=== PATIENT | male | born 1985 | race Caucasian/White ===

== ENCOUNTER → 2018-08-14 | Outpatient (REF) | payer OTHER, SELFPAY ==
[2018-08-14 12:43] LABS: BASO % 0.6 % (0.0-1.0); EOS # 0.4 10^3/uL (0.0-0.50); EOS % 5.5 % (0.0-3.0); HEMATOCRIT 47.9 % (42.0-52.0); HEMOGLOBIN 16.2 g/dl (13.5-17.5); LYMPH # 2.2 10^3/uL (1.5-4.5); LYMPH % 33.8 % (24.0-44.0); MEAN CORPUSCULAR HEMOGLOBIN 29.4 pg (27.0-33.0); MEAN CORPUSCULAR HGB CONC 33.8 g/dl (32.0-36.5); MEAN CORPUSCULAR VOLUME 86.9 fl (80.0-96.0); MONO # 0.5 10^3/uL (0.0-0.8); MONO % 7.7 % (0.0-5.0); NEUTROPHILS # 3.3 10^3/uL (1.8-7.7); NEUTROPHILS % 52.2 % (36.0-66.0); PLATELET COUNT, AUTOMATED 318 10^3/uL (150-450); RED BLOOD COUNT 5.51 10^6/uL (4.30-6.10); WHITE BLOOD COUNT 6.4 10^3/uL (4.0-10.0)
[2018-08-14 12:51] LABS: BLOOD UREA NITROGEN 15 MG/DL (7-18); CALCIUM LEVEL 9.3 MG/DL (8.5-10.1); CARBON DIOXIDE LEVEL 28 MEQ/L (21-32); CHLORIDE LEVEL 106 MEQ/L (98-107); CREATININE FOR GFR 0.79 MG/DL (0.70-1.30); GLOMERULAR FILTRATION RATE > 60.0 (>60); GLUCOSE, FASTING 103 MG/DL (70-100); POTASSIUM SERUM 4.4 MEQ/L (3.5-5.1); SODIUM LEVEL 140 MEQ/L (136-145)
[2018-08-14 12:52] LABS: ALBUMIN 4.1 GM/DL (3.2-5.2); ALT/SGPT 94 U/L (12-78); CHOLESTEROL LEVEL 142 MG/DL (<200); CHOLESTEROL RISK RATIO 6.173 (<5); FREE T4 1.08 NG/DL (0.76-1.46); HDL CHOLESTEROL 23 MG/DL (>40); LDL CHOLESTEROL 84 MG/DL (<100); NON-HDL-C 119 MG/DL; THYROID STIMULATING HORMONE 0.465 uIU/ML (0.358-3.740); TOTAL PROTEIN 7.4 GM/DL (6.4-8.2); TRIGLYCERIDES LEVEL 175 MG/DL (<150)
[2018-08-14 13:23] LABS: HEMOGLOBIN A1c 5.3 %
[2018-08-18 08:53] LABS: D001-IgE D pteronyssinus 0.23 kU/L (Class 0/I); E001-IgE Cat Epith/Dander < 0.10 kU/L (Class 0); E005-IgE Dog Dander 0.23 kU/L (Class 0/I); G002-IgE Bermuda Grass 1.43 kU/L (Class III); G008-IgE Kentucky Bluegrass 1.41 kU/L (Class III); M001-IgE Penicillium chrysogen < 0.10 kU/L (Class 0); M002 IgE Cladosporium herbaru < 0.10 kU/L (Class 0); M003 IgE Aspergillus fumigatu < 0.10 kU/L (Class 0); M006-IgE Alternaria alternata 0.51 kU/L (Class I); T001-IgE Maple/Box Elder 1.29 kU/L (Class II); T006-IgE Cedar, Mountain 0.97 kU/L (Class II); T007-IgE Oak, White 2.23 kU/L (Class III); T008-IgE Elm, American 1.33 kU/L (Class II); T015-IgE Ash, White 1.42 kU/L (Class III); T041-IgE Hickory, White 1.32 kU/L (Class II); T070-IgE White Mulberry 0.99 kU/L (Class II); W009-IgE Plantain, English 1.45 kU/L (Class III); W014-IgE Pigweed, Rough 1.17 kU/L (Class II); W018-IgE Sheep Sorrel 1.28 kU/L (Class II)
== END ==
LOC: M SFHCPLAZ 09:21
PROVIDERS: ATTEND Physician Assistant Medical
DX: Z13.220 Encounter for screening for lipoid disorders (principal); J30.2 Other seasonal allergic rhinitis; E66.9 Obesity, unspecified

== ENCOUNTER → 2018-08-23 | Outpatient (CLI) | payer OTHER, SELFPAY ==
--- NOTE | 2018-08-23 13:06 | REP ---
Abdominal right recorder ultrasound for elevated liver function tests: There is a negative Luis's sign. There is no cholelithiasis, gallbladder wall thickening or pericholecystic fluid. There is no intrahepatic or extrahepatic biliary duct dilatation. The common duct measures four point millimeters in diameter per The hepatic parenchyma is hyperechoic compatible with no steatosis. There are no hepatic masses. The visualized areas of the pancreas are unremarkable. Portions of the pancreas are obscured by bowel gas. Right kidney measures 31 a 7.5 x 5.7 meters and is normal size. There is no right renal calculus or hydronephrosis. There is no renal solid or cystic mass. There is no right upper quadrant abdominal ascites. Impression: Hepato steatosis. Otherwise, negative abdominal right upper quadrant ultrasound. Electronically Signed by Abrahan Guerrero MD 08/23/2018 12:57 P
== END ==
LOC: M RAD 08:30
PROVIDERS: ATTEND Physician Assistant Medical
DX: R94.5 Abnormal results of liver function studies (principal); K75.81 Nonalcoholic steatohepatitis (NASH)

== ENCOUNTER 2021-08-17 00:26 | Emergency (ER) | payer OTHER ==
[~2021-08-17] VITALS: Ht 185.4 cm; Wt 102.3 kg
[2021-08-17 00:26] VITALS: BP 155/97
== END 2021-08-17 06:50 | disposition home or self-care (01) ==
LOC: M ED 00:26
DX: S09.90XA Unspecified injury of head, initial encounter (principal); S16.1XXA Strain of muscle, fascia and tendon at neck level, initial encounter; W01.0XXA Fall on same level from slipping, tripping and stumbling without subsequent striking against object, initial encounter; W22.09XA Striking against other stationary object, initial encounter; Y92.009 Unspecified place in unspecified non-institutional (private) residence as the place of occurrence of the external cause; Y93.9 Activity, unspecified; Y99.9 Unspecified external cause status

== ENCOUNTER 2024-04-11 10:09 | Emergency (ER) | payer OTHER ==
[~2024-04-11] VITALS: Ht 180.3 cm; Wt 103.5 kg
[2024-04-11 12:20] LABS: BASO % 0.8 % (0.0-1.0); EOS # 0.1 10^3/uL (0.0-0.5); HEMATOCRIT 47.8 % (42.0-52.0); HEMOGLOBIN 16.3 g/dl (13.5-17.5); LYMPH # 1.3 10^3/uL (1.5-5.0); LYMPH % 25.7 % (24.0-44.0); MEAN CORPUSCULAR HEMOGLOBIN 29.5 pg (27.0-33.0); MEAN CORPUSCULAR HGB CONC 34.1 g/dl (32.0-36.5); MEAN CORPUSCULAR VOLUME 86.6 fl (80.0-96.0); MONO # 0.5 10^3/uL (0.0-0.8); MONO % 9.9 % (2.0-8.0); NEUTROPHILS # 3.1 10^3/uL (1.5-8.5); NEUTROPHILS % 61.4 % (36.0-66.0); PLATELET COUNT, AUTOMATED 304 10^3/uL (150-450); RED BLOOD COUNT 5.52 10^6/uL (4.30-6.10); WHITE BLOOD COUNT 5.1 10^3/uL (4.0-10.0)
[2024-04-11 12:33] LABS: ERYTHROCYTE SEDIMENTATION RATE 14 mm/hr (0-15)
[2024-04-11 12:41] LABS: CK-MB VALUE MASS < 1.0 NG/ML (<3.6)
[2024-04-11 12:42] LABS: C REACTIVE PROTEIN QUANTITATIV < 0.40 MG/DL (<1.0)
[2024-04-11 12:43] LABS: BLOOD UREA NITROGEN 14 MG/DL (9-23); CALCIUM LEVEL 9.8 MG/DL (8.5-10.1); CARBON DIOXIDE LEVEL 28 MMOL/L (20-31); CHLORIDE LEVEL 104 MMOL/L (98-107); CREATININE FOR GFR 0.74 MG/DL (0.70-1.30); GLOMERULAR FILTRATION RATE > 60.0 (>60); GLUCOSE, FASTING 91 MG/DL (60-100); MAGNESIUM LEVEL 2.2 MG/DL (1.8-2.4); POTASSIUM SERUM 4.4 MMOL/L (3.5-5.1); SODIUM LEVEL 139 MMOL/L (136-145)
[2024-04-11 12:59] LABS: CPK CREATINE PHOSPHOKINASE 43 U/L (46-171); MB/CK RELATIVE INDEX 2.32 (< OR =4)
[2024-04-11 13:30] VITALS: BP 124/85; TEMP 97.1; O2SAT 95
== END 2024-04-11 13:35 | disposition home or self-care (01) ==
LOC: M ED 10:09
DX: R07.9 Chest pain, unspecified (principal)

== ENCOUNTER 2024-09-27 02:32 | Emergency (ER) | payer OTHER ==
[~2024-09-27] VITALS: Ht 182.9 cm; Wt 107.8 kg
[2024-09-27] MEDS ORDERED: ISOVUE-370 76% 100ML VIAL As Ordered ONE (03:15)
[2024-09-27 03:17] LABS: BASO % 0.5 % (0.0-1.0); EOS # 0.4 10^3/uL (0.0-0.5); EOS % 4.7 % (0.0-3.0); HEMATOCRIT 46.5 % (42.0-52.0); HEMOGLOBIN 16.2 g/dl (13.5-17.5); LYMPH # 2.6 10^3/uL (1.5-5.0); LYMPH % 34.8 % (24.0-44.0); MEAN CORPUSCULAR HEMOGLOBIN 30.3 pg (27.0-33.0); MEAN CORPUSCULAR HGB CONC 34.8 g/dl (32.0-36.5); MEAN CORPUSCULAR VOLUME 86.9 fl (80.0-96.0); MONO # 0.7 10^3/uL (0.0-0.8); MONO % 9.5 % (2.0-8.0); NEUTROPHILS # 3.8 10^3/uL (1.5-8.5); NEUTROPHILS % 50.4 % (36.0-66.0); PLATELET COUNT, AUTOMATED 303 10^3/uL (150-450); RED BLOOD COUNT 5.35 10^6/uL (4.30-6.10); WHITE BLOOD COUNT 7.5 10^3/uL (4.0-10.0)
[2024-09-27 03:28] LABS: INR 0.95; PARTIAL THROMBOPLASTIN TIME 28.2 SECONDS (24.8-34.2)
[2024-09-27 04:01] LABS: BLOOD UREA NITROGEN 14 MG/DL (9-23); CALCIUM LEVEL 9.3 MG/DL (8.5-10.1); CARBON DIOXIDE LEVEL 27 MMOL/L (20-31); CHLORIDE LEVEL 106 MMOL/L (98-107); CREATININE FOR GFR 0.73 MG/DL (0.70-1.30); GLOMERULAR FILTRATION RATE > 90.0 (>60); GLUCOSE, FASTING 104 MG/DL (60-100); POTASSIUM SERUM 3.9 MMOL/L (3.5-5.1); SODIUM LEVEL 144 MMOL/L (136-145)
[2024-09-27] MEDS: NS (Normal Saline) 0.9% 1,000 ML IV ONE (06:14)
[2024-09-27] MEDS: MAG SULF 1GM/100ML (MAG RUN) 1 GM in IV 1 EA IV ONE (06:14)
[2024-09-27] MEDS: KETOROLAC 30 MG/ML 1ML VIAL IV ONE (06:14)
[2024-09-27] MEDS: ACETAMINOPHEN *IV* 1,000 MG in IV 1 EA IV ONE (07:35)
[2024-09-27] MEDS ORDERED: REGL10TA6 PO (08:04)
[2024-09-27 08:45] VITALS: BP 120/79; TEMP 97.2; O2SAT 96
== END 2024-09-27 09:00 | disposition home or self-care (01) ==
LOC: M ED 02:32
DX: G43.409 Hemiplegic migraine, not intractable, without status migrainosus (principal); R94.31 Abnormal electrocardiogram [ECG] [EKG]; Z79.899 Other long term (current) drug therapy
CPT/HCPCS: 70450; 70496; 70498; 71045; 80047; 80048; 85025; 85610; 85730; 93005; 93041; 94760; 96365; 96366; 96375; 99285; J0131; J1100; J1885; J3475; Q9967

== ENCOUNTER 2025-01-31 12:03 | Emergency (ER) | payer OTHER ==
[~2025-01-31] VITALS: Ht 180.3 cm; Wt 106.2 kg
[~2025-01-31 12:03] MED LIST: REGL10TA6 PO
[2025-01-31 12:40] LABS: BASO # 0.1 10^3/uL (0.0-0.2); BASO % 0.9 % (0.0-1.0); EOS # 0.2 10^3/uL (0.0-0.5); EOS % 4.0 % (0.0-3.0); LYMPH # 1.5 10^3/uL (1.5-5.0); LYMPH % 27.7 % (24.0-44.0); MONO # 0.4 10^3/uL (0.0-0.8); MONO % 6.9 % (2.0-8.0); NEUTROPHILS # 3.3 10^3/uL (1.5-8.5); NEUTROPHILS % 60.3 % (36.0-66.0); PLATELET COUNT, AUTOMATED 304 10^3/uL (150-450)
[2025-01-31 13:18] LABS: CK-MB VALUE MASS < 1.0 NG/ML (<3.6)
[2025-01-31 13:19] LABS: CALCIUM LEVEL 10.0 MG/DL (8.5-10.1); CARBON DIOXIDE LEVEL 28 MMOL/L (20-31); CHLORIDE LEVEL 105 MMOL/L (98-107); CREATININE FOR GFR 0.74 MG/DL (0.70-1.30); GLOMERULAR FILTRATION RATE > 90.0 (>60); POTASSIUM SERUM 4.8 MMOL/L (3.5-5.1); SODIUM LEVEL 143 MMOL/L (136-145)
[2025-01-31 13:22] LABS: CPK CREATINE PHOSPHOKINASE 49 U/L (46-171)
[2025-01-31 14:09] LABS: CK-MB VALUE MASS < 1.0 NG/ML (<3.6)
[2025-01-31 14:31] LABS: CPK CREATINE PHOSPHOKINASE 43 U/L (46-171)
[2025-01-31 16:30] VITALS: BP 132/87; TEMP 98; O2SAT 97
== END 2025-01-31 16:45 | disposition home or self-care (01) ==
LOC: M ED 12:03
DX: R07.9 Chest pain, unspecified (principal); E78.5 Hyperlipidemia, unspecified; F41.9 Anxiety disorder, unspecified

== ENCOUNTER → 2025-03-06 | Outpatient (CLI) | payer OTHER ==
[2025-03-06 15:10] LABS: BASO # 0.1 10^3/uL (0.0-0.2); BASO % 1.1 % (0.0-1.0); EOS # 0.4 10^3/uL (0.0-0.5); EOS % 6.1 % (0.0-3.0); LYMPH # 2.0 10^3/uL (1.5-5.0); LYMPH % 34.9 % (24.0-44.0); MONO # 0.5 10^3/uL (0.0-0.8); MONO % 8.6 % (2.0-8.0); NEUTROPHILS # 2.8 10^3/uL (1.5-8.5); NEUTROPHILS % 49.1 % (36.0-66.0); PLATELET COUNT, AUTOMATED 338 10^3/uL (150-450)
[2025-03-06 15:30] LABS: CREATININE, URINE 120.4 MG/DL; MALB URINE SIEMENS 5.0 MG/L; MAU/CREAT RATIO 4.1 MCG/MG (0.0-30.0)
[2025-03-06 15:31] LABS: ALT/SGPT 105 U/L (7.0-40); AST/SGOT 45 U/L (<34); CALCIUM LEVEL 9.9 MG/DL (8.5-10.1); CARBON DIOXIDE LEVEL 29 MMOL/L (20-31); CHLORIDE LEVEL 101 MMOL/L (98-107); CHOLESTEROL LEVEL 157 MG/DL (<200); CHOLESTEROL RISK RATIO 6.30 (<5); CREATININE FOR GFR 0.79 MG/DL (0.70-1.30); GLOMERULAR FILTRATION RATE > 90.0 (>60); LDL CHOLESTEROL 106.1 MG/DL (<100); NON-HDL-C 132.1 MG/DL; POTASSIUM SERUM 4.2 MMOL/L (3.5-5.1); SODIUM LEVEL 137 MMOL/L (136-145); TRIGLYCERIDES LEVEL 130 MG/DL (<150)
[2025-03-06 15:42] LABS: ESTIMATED AVERAGE GLUCOSE 100.0 MG/DL (60-110)
[2025-03-06 15:59] LABS: HIV 1&2 SCREEN NEGATIVE (NEGATIVE)
[2025-03-06 16:06] LABS: HEPATITIS C VIRUS ABY INDEX 0.09 INDEX (<0.8)
[2025-03-06 18:06] LABS: APPEARANCE, URINE CLEAR (CLEAR); BACTERIA, URINE AUTO NEGATIVE (NEGATIVE); BILIRUBIN, URINE AUTO NEGATIVE (NEGATIVE); BLOOD, URINE BLOOD NEGATIVE (NEGATIVE); GLUCOSE, URINE (UA) AUTO NEGATIVE (NEGATIVE); KETONE, URINE AUTO NEGATIVE (NEGATIVE); LEUKOCYTE ESTERASE, URINE AUTO NEGATIVE (NEGATIVE); MUCUS, URINE SMALL (NEGATIVE); NITRITE, URINE AUTO NEGATIVE (NEGATIVE); PROTEIN, URINE AUTO NEGATIVE (NEGATIVE); RBC, URINE AUTO 0 /HPF (0-3); SPECIFIC GRAVITY URINE AUTO 1.016 (1.002-1.035); SQUAMOUS EPITHELIAL CELL UR AU 0 /HPF (0-6); UROBILINOGEN, URINE AUTO 0.2 mg/dL (0.0-2.0); WBC, URINE AUTO 1 /HPF (0-3)
== END ==
LOC: M WUC 09:44
PROVIDERS: ATTEND Internal Medicine
DX: Z00.00 Encounter for general adult medical examination without abnormal findings (principal); M25.512 Pain in left shoulder; I10 Essential (primary) hypertension